=== PATIENT | female | born 1975 | race Caucasian/White ===

== ENCOUNTER 2017-07-04 18:38 | Emergency (ER) | payer OTHER ==
[2017-07-04 19:47] VITALS: BP 133/81
--- NOTE | 2017-07-04 21:17 | UC ---
Complaint Female HPI - HPI Summary HPI Summary: pt with 3 days of urinary frequency and urgency. today with burning and mild back pain. Pt took OTC azo x 1 without relief. no fevers, chills mild suprapubic abdominal pain. No vaginal discharge, itching, odor. denies fevers, no nausea vomiting pt has not taken Motrin/apap Pt's medications reviewed this visit - History Of Current Complaint Chief Complaint: UCGU Stated Complaint: UTI Time Seen by Provider: 07/04/17 21:16 Hx Obtained From: Patient Hx Last Menstrual Period: 06/24/17 ?: No Onset/Duration: Gradual Onset Timing: Constant Severity Initially: Moderate Severity Currently: Moderate Pain Intensity: 10 Pain Scale Used: 0-10 Numeric Character: Burning Aggravating Factor(s): Urination Associated Signs And Symptoms: Positive: Back Pain - Allergies/Home Medications Allergies/Adverse Reactions: Allergies Allergy/AdvReac Type Severity Reaction Status Date / Time shrimp Allergy Hives Verified 07/04/17 19:37 Home Medications: Home Medications Amlodipine Bes/Olmesartan Med [Emely 10-20 mg-] 1 tab PO DAILY 07/04/17 [History Confirmed 07/04/17] busPIRone TAB* [Buspar TAB*] 10 mg PO BID 07/04/17 [History Confirmed 07/04/17] PMH/Surg Hx/FS Hx/Imm Hx Previously Healthy: Yes Psychological History: Anxiety, Depression - Surgical History Surgical History: Yes Surgery Procedure, Year, and Place: tubal ligation - Family History Known Family History: Positive: Hypertension - Social History Occupation: Employed Full-time Lives: With Family Alcohol Use: Weekly Substance Use Type: None Smoking Status (MU): Current Some Day Smoker Type: Cigarettes Amount Used/How Often: 1 cigarette / day Length of Time of Smoking/Using Tobacco: 27 years Have You Smoked in the Last Year: Yes When Did the Patient Quit Smoking/Using Tobacco: NONE FOR PAST WEEK - Immunization History Most Recent Influenza Vaccination: [id number] Review of Systems Constitutional: Negative Gastrointestinal: Abdominal Pain Genitourinary: Dysuria, Frequency, Urgency Motor: Negative All Other Systems Reviewed And Are Negative: Yes Physical Exam Triage Information Reviewed: Yes Appearance: Well-Appearing, No Pain Distress, Well-Nourished Vital Signs: Initial Vital Signs Temp 98.4 F 07/04/17 19:41 Pulse 100 07/04/17 19:41 Resp 16 07/04/17 19:41 BP 133/81 07/04/17 19:41 Pulse Ox 100 07/04/17 19:41 Vital Signs Reviewed: Yes Eye Exam: Normal Eyes: Positive: Conjunctiva Clear ENT Exam: Normal ENT: Positive: Hearing grossly normal, Pharynx normal, Pharyngeal erythema Dental Exam: Normal Neck exam: Normal Neck: Positive: Supple, Nontender, No Lymphadenopathy Respiratory Exam: Normal Respiratory: Positive: Chest non-tender, Lungs clear, Normal breath sounds, No respiratory distress, No accessory muscle use Cardiovascular Exam: Normal Cardiovascular: Positive: RRR, No Murmur Abdominal Exam: Normal Abdomen Description: Positive: No Organomegaly, Soft. Negative: Nontender - mild suprapubic discomfort soft + BS, CVA Tenderness (R), CVA Tenderness (L) Musculoskeletal Exam: Normal Neurological Exam: Normal Psychological Exam: Normal Skin Exam: Normal Complaint Female Dx - Course Course Of Treatment: pt with dysuria, frequency, urgency today. mild back pain. no analgesia. + UTI, culture. Rx bactrim, pyridium. hydrate. return precautions. pt declined work note - Differential Dx/Diagnosis Provider Diagnoses: UTI Discharge - Discharge Plan Condition: Stable Disposition: HOME Prescriptions: Phenazopyridine 200 mg (NF) [Pyridium 200 MG tab *] 200 mg PO TID PRN #10 tab PRN Reason: dysuria Sulfamethox/Trimethoprim DS* [Bactrim DS 800/160 TAB*] 1 tab PO BID #20 tab Patient Education Materials: Urinary Tract Infection in Women (ED) Referrals: No Primary Care Phys,NOPCP [Primary Care Provider] - Additional Instructions: - Take antibiotics as prescribed until gone - alternate ibuprofen (Advil, Motrin) and tylenol as prescribed until gone - okay to take pyridium for burning - this medication will make your urine bright orange - this is normal - Stay well hydrated. Drink plenty of non-alcoholic, non-caffinated beverages - your urine has been sent for additional testing. If you need a different antibiotic, you will receive a call from a care team leader - It is recommended you go to the emergency department for vomiting, fevers or any other concerns
[2017-07-04] MEDS ORDERED: Sulfamethox/Trimethoprim DS 800/160* TAB PO ONE (21:22)
[2017-07-04] MEDS ORDERED: Phenazopyridine TAB* 100 MG PO ONE (21:23)
== END 2017-07-04 21:34 | disposition home or self-care (01) ==
LOC: UCCORT 18:38
DX: N39.0 Urinary tract infection, site not specified (principal); F17.210 Nicotine dependence, cigarettes, uncomplicated
CPT/HCPCS: 81003; 87077; 87086; 87186; 99212; A9270-GY; G0463

== ENCOUNTER 2017-07-27 14:43 | Emergency (ER) | payer OTHER ==
[2017-07-27 15:48] VITALS: BP 105/75
--- NOTE | 2017-07-27 16:26 | UC ---
FLU HPI - HPI Summary HPI Summary: 1 day of vomiting, chills headache and sore throat--is concerned because she works at [employer] and they are under isolation due to influenza - History of Current Complaint Chief Complaint: UCGeneralIllness Stated Complaint: VOMITING,CHILLS Time Seen by Provider: 07/27/17 16:19 Hx Obtained From: Patient Hx Last Menstrual Period: 1 WK AGO ?: No Onset/Duration: Sudden Onset, Lasting Days - 1 Severity Currently: Moderate Severity Initially: Moderate Pain Intensity: 8 Pain Scale Used: 0-10 Numeric Associated Signs & Symptoms: Positive: Myalgia, Sore Throat, Nasal Congestion, Headache, Vomiting Related Hx: Possible Flu/Infectious Exposure - Allergy/Home Medications Allergies/Adverse Reactions: Allergies Allergy/AdvReac Type Severity Reaction Status Date / Time shrimp Allergy Hives Verified 07/27/17 15:40 PMH/Surg Hx/FS Hx/Imm Hx Previously Healthy: No Psychological History: Anxiety - Surgical History Surgical History: Yes Surgery Procedure, Year, and Place: tubal ligation - Family History Known Family History: Positive: Hypertension - Social History Occupation: Employed Full-time Lives: With Family Alcohol Use: Occasionally Substance Use Type: None Smoking Status (MU): Former Smoker Type: Cigarettes Amount Used/How Often: 1 cigarette / day Length of Time of Smoking/Using Tobacco: 27 years Have You Smoked in the Last Year: Yes When Did the Patient Quit Smoking/Using Tobacco: NONE FOR PAST 2 WEEKS - Immunization History Most Recent Influenza Vaccination: [id number] Review of Systems Constitutional: Chills, Fatigue Skin: Negative Eyes: Negative ENT: Sore Throat, Nasal Discharge Respiratory: Cough Cardiovascular: Negative Gastrointestinal: Vomiting, Nausea Genitourinary: Negative Motor: Negative Neurovascular: Negative Musculoskeletal: Negative Neurological: Headache Psychological: Negative Is Patient Immunocompromised?: No All Other Systems Reviewed And Are Negative: Yes Physical Exam Triage Information Reviewed: Yes Appearance: Well-Nourished, Ill-Appearing - mild, Pain Distress - mild Vital Signs: Initial Vital Signs Temp 98.5 F 07/27/17 15:42 Pulse 97 07/27/17 15:42 Resp 16 07/27/17 15:42 BP 105/75 07/27/17 15:42 Pulse Ox 100 07/27/17 15:42 Vital Signs Reviewed: Yes Eye Exam: Normal Eyes: Positive: Conjunctiva Clear ENT Exam: Normal ENT: Positive: Normal ENT inspection, Hearing grossly normal, Pharynx normal, TMs normal, Uvula midline. Negative: Nasal congestion, Tonsillar swelling, Tonsillar exudate, Trismus, Muffled voice, Hoarse voice, Dental tenderness, Sinus tenderness Dental Exam: Normal Neck exam: Normal Neck: Positive: Supple, Nontender, No Lymphadenopathy Respiratory Exam: Normal Respiratory: Positive: Chest non-tender, Lungs clear, Normal breath sounds, No respiratory distress, No accessory muscle use Cardiovascular Exam: Normal Cardiovascular: Positive: RRR, No Murmur, Pulses Normal, Brisk Capillary Refill Abdominal Exam: Normal Abdomen Description: Positive: Nontender, No Organomegaly, Soft. Negative: CVA Tenderness (R), CVA Tenderness (L) Bowel Sounds: Positive: Present Musculoskeletal Exam: Normal Musculoskeletal: Positive: Strength Intact, ROM Intact, No Edema Neurological Exam: Normal Neurological: Positive: Alert, Muscle Tone Normal Psychological Exam: Normal Skin Exam: Normal Diagnostics - Laboratory Diagnostic Studies Completed/Ordered: influenza A/B (-), strep (-) Flu Course/Dx - Course Course Of Treatment: rest tylenol, ibuprofen, clear liquids and advance diet as tolerated, - Differential Dx/Diagnosis Provider Diagnoses: Viral illness, acute nausea and vomiting Discharge - Discharge Plan Condition: Stable Disposition: HOME Patient Education Materials: Acute Nausea and Vomiting (ED), Viral Syndrome (ED ) Forms: *Work Release Referrals: Jameel Becker MD [Primary Care Provider] - If Needed
[2017-07-27] MEDS: Acetaminophen TAB* 325 MG PO ONE (16:34)
[2017-07-27] MEDS: Ondansetron ODT TAB* 4 MG PO ONE (16:34)
== END 2017-07-27 16:51 | disposition home or self-care (01) ==
LOC: UCCORT 14:43
DX: B34.9 Viral infection, unspecified (principal); R11.2 Nausea with vomiting, unspecified; Z87.891 Personal history of nicotine dependence; Z91.013 Allergy to seafood
CPT/HCPCS: 87502; 87651; 99212; A9270-GY; G0463

== ENCOUNTER 2018-07-22 07:11 | Emergency (ER) | payer OTHER ==
[2018-07-22] MEDS ORDERED: Ondansetron ODT TAB* 4 MG PO ONE ×2 (07:30→07:52)
--- NOTE | 2018-07-22 07:36 | UC ---
Abdominal Pain Female HPI - HPI Summary HPI Summary: 43 yo female with onset of epigastric abd pain about 1 AM Associated with nausea Later vomited twice no diarrhea no UTI symptoms no f/c, no URI symptoms for years has had severe dyspepsia >4x weeks takes OTC PPI prn no black or tarry stool - History of Current Complaint Chief Complaint: UCGI Stated Complaint: VOMITING, FLU EXPOSURE Hx Obtained From: Patient Hx Last Menstrual Period: 2 weeks Onset/Duration: Gradual Onset, Lasting Hours Timing: Constant Severity Initially: Severe Severity Currently: Severe Pain Intensity: 9 Pain Scale Used: 0-10 Numeric Location: Epigastric Radiates: No Character: Burning, Colicy, Sharp Aggravating Factor(s): Nothing Alleviating Factor(s): Nothing Associated Signs and Symptoms: Positive: Nausea, Vomiting Allergies/Adverse Reactions: Allergies Allergy/AdvReac Type Severity Reaction Status Date / Time shrimp Allergy Hives Verified 07/22/18 07:25 PMH/Surg Hx/FS Hx/Imm Hx Previously Healthy: Yes - Surgical History Surgical History: Yes Surgery Procedure, Year, and Place: tubal ligation - Family History Known Family History: Positive: Hypertension - Social History Alcohol Use: Occasionally Substance Use Type: None Smoking Status (MU): Former Smoker Type: Cigarettes Amount Used/How Often: 1 cigarette / day Length of Time of Smoking/Using Tobacco: 27 years Have You Smoked in the Last Year: Yes When Did the Patient Quit Smoking/Using Tobacco: NONE FOR PAST 2 WEEKS - Immunization History Most Recent Influenza Vaccination: [id number] Review of Systems All Other Systems Reviewed And Are Negative: Yes Constitutional: Positive: Negative Skin: Positive: Negative Eyes: Positive: Negative ENT: Positive: Negative Respiratory: Positive: Negative Cardiovascular: Positive: Negative Gastrointestinal: Positive: Abdominal Pain, Vomiting, Nausea Genitourinary: Positive: Negative Motor: Positive: Negative Neurovascular: Positive: Negative Musculoskeletal: Positive: Negative Neurological: Positive: Negative Psychological: Positive: Negative Physical Exam Triage Information Reviewed: Yes Appearance: Well-Appearing, No Pain Distress, Well-Nourished Vital Signs: Initial Vital Signs Temp 98.4 F 07/22/18 07:20 Pulse 87 07/22/18 07:20 Resp 20 07/22/18 07:20 BP 145/84 07/22/18 07:20 Pulse Ox 99 07/22/18 07:20 Vital Signs Reviewed: Yes Eyes: Positive: Conjunctiva Clear ENT: Positive: Hearing grossly normal. Negative: Nasal congestion, Nasal drainage Neck: Positive: Supple, Nontender, No Lymphadenopathy Respiratory: Positive: Lungs clear, Normal breath sounds, No respiratory distress, No accessory muscle use Cardiovascular: Positive: RRR, No Murmur Abdomen Description: Positive: No Organomegaly. Negative: Nontender - tender epigastrium, CVA Tenderness (R), CVA Tenderness (L) Bowel Sounds: Positive: Present Musculoskeletal: Positive: ROM Intact, No Edema Neurological: Positive: Alert Psychological Exam: Normal Skin Exam: Normal Re-Evaluation - Re-Evaluation First Eval Re-Evaluation Time: 09:16 Change: Improved - no nausea/pain 08/05 Abd Pain Female Course/Dx - Differential Dx/Diagnosis Provider Diagnosis: Epigastric abdominal pain, Dyspepsia, Elevated blood pressure reading without diagnosis of hypertension Discharge - Sign-Out/Discharge Documenting (check all that apply): Patient Departure All imaging exams completed and their final reports reviewed: Yes - Discharge Plan Condition: Stable Disposition: HOME Prescriptions: Ondansetron TAB* [Zofran Tab*] 4 mg PO Q6H PRN #10 tab PRN Reason: Nausea Patient Education Materials: Acute Nausea and Vomiting (ED), Indigestion (ED), Acute Abdominal Pain (ED) Referrals: Jameel Becker MD [Primary Care Provider] - As Soon As Possible Additional Instructions: Continue your OTC reflux med mylanta 30 ml (2 tablespoons) every 2 hours while awake for 2-3 days zofran if needed for nausea See your MD in follow up I don't like the fact you have had heart burn so frequently If not improving you may need to see a gi specialist decrease caffeine use To ER for new or worsening symptoms avoid advil/aleve or aspirin for now - Billing Disposition and Condition Condition: STABLE Disposition: Home
[2018-07-22 07:47] LABS: Influenza A Molecular NEGATIVE (Negative); Influenza B Molecular NEGATIVE (Negative)
[2018-07-22] MEDS ORDERED: Al Hydrox/Mg Hydrox/Simet LIQ* 30 ML UDC PO ONE (08:42)
[2018-07-22 09:37] VITALS: BP 137/84
== END 2018-07-22 09:30 | disposition home or self-care (01) ==
LOC: UCCORT 07:11
DX: R10.13 Epigastric pain (principal); R03.0 Elevated blood-pressure reading, without diagnosis of hypertension; R11.2 Nausea with vomiting, unspecified; Z91.013 Allergy to seafood; Z87.891 Personal history of nicotine dependence
CPT/HCPCS: 99213; A9270-GY; G0463

== ENCOUNTER 2018-12-17 16:46 | Emergency (ER) | payer OTHER ==
[2018-12-17 17:21] VITALS: BP 141/90
--- NOTE | 2018-12-17 17:28 | ED ---
Abdominal Pain/Female - HPI Summary HPI Summary: 43 yr old female with epigastric and right upper quadrant abdominal pain, bloating, distention, nausea and vomiting. Onset over two months ago. Worse every time she tries to eat. She has had difficulty keeping simple things down today. The patient reports that her abdomen seems more distended and bloated. - History of Current Complaint Chief Complaint: UCAbdominalPain Stated Complaint: RECHECK - VOMITING,STOMACH ACHE Time Seen by Provider: 12/17/18 17:22 Hx Last Menstrual Period: 11/18/18 Pain Intensity: 10 Allergies/Adverse Reactions: Allergies Allergy/AdvReac Type Severity Reaction Status Date / Time shrimp Allergy Hives Verified 12/17/18 17:12 Home Medications: Home Medications Al Hydrox/Mg Hydrox/West BULK* [Mylanta - BULK BOT*] 1 alisha PO PRN 12/17/18 [ History] PMH/Surg Hx/FS Hx/Imm Hx Endocrine/Hematology History: Denies: Hx Diabetes, Hx Thyroid Disease Cardiovascular History: Denies: Hx Hypertension Respiratory History: Denies: Hx Asthma, Hx Chronic Obstructive Pulmonary Disease (COPD) GI History: Denies: Hx Ulcer - Surgical History Surgery Procedure, Year, and Place: tubal ligation Infectious Disease History: No Infectious Disease History: Denies: Hx Clostridium Difficile, Hx Hepatitis, Hx Human Immunodeficiency Virus (HIV), Hx of Known/Suspected MRSA, Hx Shingles, Hx Tuberculosis - PPD TESTS POSITIVE FOR TB, XRAY IS NEGATIVE, Hx Known/Suspected VRSA, History Other Infectious Disease, Traveled Outside the [place] in Last 30 Days - Family History Known Family History: Positive: Hypertension - Social History Occupation: Employed Full-time Alcohol Use: Occasionally Substance Use Type: Reports: None Smoking Status (MU): Light Every Day Tobacco Smoker Type: Cigarettes Amount Used/How Often: 3 CIGS A DAY Length of Time of Smoking/Using Tobacco: 27 years Have You Smoked in the Last Year: Yes Review of Systems Constitutional: Negative Positive: Abdominal Pain, Vomiting, Nausea All Other Systems Reviewed And Are Negative: Yes Physical Exam Triage Information Reviewed: Yes Vital Signs On Initial Exam: Initial Vitals Temp Pulse Resp BP Pulse Ox 98.1 F 69 18 141/90 99 12/17/18 17:14 12/17/18 17:14 12/17/18 17:14 12/17/18 17:14 12/17/18 17:14 Vital Signs Reviewed: Yes Appearance: Positive: Well-Appearing, No Pain Distress Skin: Positive: Warm, Skin Color Reflects Adequate Perfusion Head/Face: Positive: Normal Head/Face Inspection ENT: Positive: Normal ENT inspection Neck: Positive: Nontender Respiratory/Lung Sounds: Positive: Clear to Auscultation, Breath Sounds Present Cardiovascular: Positive: RRR. Negative: Murmur Abdomen Description: Positive: Distended, Other: - tender in epigastrium. Musculoskeletal: Positive: Strength/ROM Intact Neurological: Positive: Sensory/Motor Intact, Alert, Oriented to Person Place, Time, CN Intact II-III Psychiatric: Positive: Normal Diagnostics - Vital Signs Vital Signs Temp Pulse Resp BP Pulse Ox 12/17/18 17:14 98.1 F 69 18 141/90 99 - Laboratory Lab Statement: Any lab studies that have been ordered have been reviewed, and results considered in the medical decision making process. Abdominal Pain Fem Course/Dx - Course Course Of Treatment: 43 yr old with bloating, tenderness, vomiting. She has been offered an ambulance but states she is going to the ER after leaving here. - Diagnoses Provider Diagnoses: Abdominal pain, epigastric, Hypertension Discharge - Sign-Out/Discharge Documenting (check all that apply): Patient Departure All imaging exams completed and their final reports reviewed: No Studies - Discharge Plan Condition: Good Disposition: HOME Patient Education Materials: Acute Abdominal Pain (ED), Hypertension (ED) Referrals: Jameel Becker MD [Primary Care Provider] - 2 Days Additional Instructions: GO to the ER now for further evaluation. You have been offered an ambulance but have stated you want to drive yourself. - Billing Disposition and Condition Condition: GOOD Disposition: Home
== END 2018-12-17 17:33 | disposition home or self-care (01) ==
LOC: UCCORT 16:46
DX: R10.13 Epigastric pain (principal); I10 Essential (primary) hypertension; F17.210 Nicotine dependence, cigarettes, uncomplicated
CPT/HCPCS: 99212; G0463

== ENCOUNTER 2019-08-11 21:34 | Emergency (ER) | payer OTHER ==
[2019-08-11 21:50] VITALS: BP 132/94
--- NOTE | 2019-08-11 21:58 | UC ---
Respiratory Complaint HPI - HPI Summary HPI Summary: C/O cough with coughing fits, sore throat x 2-3 days. Denies fevers. Employer wants flu test with multiple employees with flu - History of Current Complaint Stated Complaint: SORE THROAT Time Seen by Provider: 08/11/19 21:41 Hx Obtained From: Patient Hx Last Menstrual Period: 11/18/18 ?: No Onset/Duration: Sudden Onset, Lasting Days - 2, Still Present Timing: Constant Severity Initially: Mild Severity Currently: Moderate Character: Cough: Nonproductive Alleviating Factors: Upright Position, Spontaneous Resolution Associated Signs And Symptoms: Positive: URI, Nasal Congestion - Allergies/Home Medications Allergies/Adverse Reactions: Allergies Allergy/AdvReac Type Severity Reaction Status Date / Time shrimp Allergy Hives Verified 08/11/19 21:42 Home Medications: Home Medications Zolpidem TAB* [Ambien*] 10 mg PO BEDTIME 02/22/13 [History Confirmed 08/11/19] LORazepam TAB(*) [Ativan 1 MG TAB (*)] 1 mg PO TID PRN 12/15/14 [History Confirmed 08/11/19] predniSONE 20 mg TAB [Deltasone 20 MG TAB*] 60 mg PO DAILY #18 tab 08/11/19 [Rx] PMH/Surg Hx/FS Hx/Imm Hx Previously Healthy: Yes - Surgical History Surgical History: Yes Surgery Procedure, Year, and Place: tubal ligation - Family History Known Family History: Positive: Hypertension, Diabetes - Social History Occupation: Employed Full-time Lives: With Family Alcohol Use: Occasionally Substance Use Type: None Smoking Status (MU): Light Every Day Tobacco Smoker Type: Cigarettes Amount Used/How Often: 3 CIGS A DAY Length of Time of Smoking/Using Tobacco: 27 years Have You Smoked in the Last Year: Yes When Did the Patient Quit Smoking/Using Tobacco: NONE FOR PAST 2 WEEKS Cessation Counseling: Patient Advised to Stop - Immunization History Most Recent Influenza Vaccination: [id number] Review of Systems All Other Systems Reviewed And Are Negative: Yes Constitutional: Positive: Fatigue ENT: Positive: Sore Throat Respiratory: Positive: Cough Cardiovascular: Positive: Chest Pain - with coughing Physical Exam Triage Information Reviewed: Yes Appearance: No Pain Distress, Well-Nourished, Ill-Appearing Vital Signs Reviewed: Yes Eyes: Positive: Conjunctiva Clear ENT: Positive: Pharynx normal, TMs normal Neck exam: Normal Respiratory: Positive: Wheezing - expiratory wheeze with coughing Cardiovascular Exam: Normal Musculoskeletal Exam: Normal Neurological Exam: Normal Psychological Exam: Normal Skin Exam: Normal Diagnostics - Laboratory Lab Results: Rapid flu is negative Respiratory Course/Dx - Differential Dx/Diagnosis Differential Diagnosis/HQI/PQRI: Asthma, Influenza, Lower Resp Infection, Sinusitis Provider Diagnosis: Upper respiratory infection with cough and congestion, Acute bronchospasm Discharge ED - Sign-Out/Discharge Documenting (check all that apply): Patient Departure All imaging exams completed and their final reports reviewed: No Studies - Discharge Plan Condition: Stable Disposition: HOME Prescriptions: predniSONE 20 mg TAB [Deltasone 20 MG TAB*] 60 mg PO DAILY #18 tab Patient Education Materials: Upper Respiratory Infection (DC), Bronchospasm (ED ) Referrals: Jameel Becker MD [Primary Care Provider] - - Billing Disposition and Condition Condition: STABLE Disposition: Home
[2019-08-11 22:04] LABS: Influenza A Molecular Negative (Negative); Influenza B Molecular Negative (Negative)
== END 2019-08-11 22:10 | disposition home or self-care (01) ==
LOC: UCCORT 21:34
DX: J06.9 Acute upper respiratory infection, unspecified (principal); R05 Cough; R09.81 Nasal congestion; J98.01 Acute bronchospasm; Z91.013 Allergy to seafood; F17.210 Nicotine dependence, cigarettes, uncomplicated; R53.83 Other fatigue
CPT/HCPCS: 99212; G0463